=== PATIENT | male | born 1950 | race Caucasian/White ===

== ENCOUNTER 2021-01-07 10:04 | Emergency (ER) | payer MEDICARE, SELFPAY ==
[2021-01-07] VITALS (7 sets, daily range): BP systolic 144–200; BP diastolic 69–101; PULSE 65–74; RESP 16–20; TEMP 36.6–36.9; O2SAT 95–100; BMI 20.9
--- NOTE | ~2021-01-07 | XR_ITS ---
EXAMINATION: XR CHEST CLINICAL INFORMATION: Generalized weakness COMPARISON: None TECHNIQUE: Portable upright AP x2 views of the chest was obtained. FINDINGS: The lungs are clear. There is no airspace consolidation or groundglass opacity. There is no pneumothorax or pneumomediastinum. The heart is normal in size and the vascularity is normal. The costophrenic sulci are clear. There is no effusion. The hilar and mediastinal contours and visualized bony structures are unremarkable. XR/XR chest 1V IMPRESSION: Unremarkable examination.
--- NOTE | ~2021-01-07 | CT_ITS ---
EXAMINATION: CT HEAD WITHOUT CONTRAST CLINICAL INFORMATION: Unsteady gait. COMPARISON: None TECHNIQUE: Contiguous axial imaging was performed from the skull base to vertex without intravenous administration of contrast. This CT examination was performed using dose optimization techniques as appropriate, variously including the following: *Automated exposure control *Adjustment of mA and/or kV according to patient size (this includes techniques or standardized protocols for targeted exams where dose is matched to indication/reason for exam; i.e. extremities or head) *Use of iterative reconstruction technique DLP: 825 mGy-cm FINDINGS: There is no evidence of an extra-axial collection. There is no evidence of intra-axial or extra-axial hemorrhage. Ventricles and extra-axial CSF spaces are prominent suggestive of mild generalized atrophy. There is nonspecific periventricular white matter disease. No mass, mass effect or infarct is seen. Visualized paranasal sinuses, mastoid air cells and middle ears are clear. No skull fracture is seen. CT/CT head/brain wo con IMPRESSION: No acute findings. Mild generalized atrophy and nonspecific periventricular white matter disease.
--- NOTE | 2021-01-07 10:39 | ECG_ITS ---
Test Reason : WEAKNESS Blood Pressure : / mmHG Vent. Rate : 065 BPM Atrial Rate : 065 BPM P-R Int : 146 ms QRS Dur : 132 ms QT Int : 446 ms P-R-T Axes : 077 083 068 degrees QTc Int : 463 ms Normal sinus rhythm Right bundle branch block Abnormal ECG When compared with ECG of 22-MAY-2005 12:13, Right bundle branch block has replaced Incomplete right bundle branch block Referred By: Karir Murry Electronically Signed By:ALLI WILSON MD
--- NOTE | 2021-01-07 10:40 | ED.WEAKNESS ---
HPI - Weakness General Chief complaint: Weakness Stated complaint: GEN WEAKNESS,UNABLE TO WALK FOR AWHILE Time Seen by Provider: 01/07/21 10:38 Source: patient and EMS Mode of arrival: EMS Limitations: no limitations History of Present Illness HPI Narrative: 70 years old male was evicted from his motel with his stone, noticed by the police records clerk that he was not walking unsteady gait in patient was sent to the hospital for further evaluation, patient stated for the past 5 years he has been having unsteady gait, able to ambulate unsteady gait by holding to the wall, patient stated first-time notice was 5 years ago and was gradually getting worse., patient declined any new other symptoms, no chest pain, no abdominal pain, no shortness of breath. No weakness no numbness or difficulty speaking. Related Data Home Medications Medication Instructions Recorded Confirmed albuterol sulfate [Ventolin HFA] 1 puff INHALATION Q4H PRN 01/07/21 01/07/21 Allergies Allergy/AdvReac Type Severity Reaction Status Date / Time No Known Allergies Allergy Unverified 01/07/21 10:39 Review of Systems Review of Systems: All other systems are reviewed and are negative Constitutional: Reports as per HPI and Reports no additional constitutional complaints Eyes: Reports as per HPI and Reports no additional eye complaints Reports system reviewed and no additional complaints, except as documented Cardiovascular: Reports as per HPI and Reports no additional cardiovascular complaints Respiratory: Reports as per HPI and Reports no additional respiratory complaints Gastrointestinal: Reports as per HPI and Reports no additional gastrointestinal complaints Genitourinary: Reports no additional female genitourinary complaints Musculoskeletal: Reports no additional musculoskeletal complaints Skin/Breast: Reports system reviewed and no additional complaints, except as docu Psychiatric: Reports no additional psychiatric complaints Endocrine: Reports no additional endocrine complaints Hematologic/Lymphatic: Reports no additional hematologic/lymphatic complaints Allergic/Immunologic: Reports no additional allergic/immunologic complaints Reports system reviewed and no additional complaints, except as documented and Reports Abnormal speech present [facility] Past Medical History Medical History Asthma Hernia Spinal cord cysts Social History Social History Alcohol intake: former Smoking Status: Current every day smoker Smoked in Last 30 Days: Yes Advance Directives: Yes Advance Directives Information Provided: Yes Advance Directives on File: No Physical Exam Vital Signs: Vital Signs: Last Vital Signs Temp 98.4 F 01/07/21 14:10 Pulse 72 01/07/21 14:10 Resp 16 01/07/21 14:10 BP 159/88 H 01/07/21 14:10 Pulse Ox 100 01/07/21 14:10 Body Mass Index 20.9 Vital signs have been reviewed as appeared to be correct. Blood pressure in the high range. Heart rate normal. Respiration rate normal. Temperature normal. Oxygen saturation normal. Appearance: Alert. Oriented X3. No acute distress. Head: Normal external exam. Normocephalic. Atraumatic. No Hunter signs noted. No raccoon eyes noted Eyes: PERRLA. EOMI. Conjunctiva and sclera normal. Eyelids normal. ENT: TM's Normal. Pharynx normal. Uvula midline. Moist mucous membranes. No trismus noted. No drooling noted. No muffled voice noted. Neck: Normal inspection. Neck supple. FROM. No adenopathy. Thyroid Normal. No meningeal signs. No neck mass noted. CVS: Normal heart rate and rhythm. Heart sound normal. No murmurs noted. Pulses normal throughout. Respiratory: No respiratory distress. Painless inspiration. Breath sounds normal. No wheezes/rales/rhonchi noted. Chest nontender. No accessory muscle usage noted or decreased air movement noted. Abdomen: Soft and nontender. Bowel sounds normal in all 4 quadrants. No distention noted. No organomegaly noted. No visible injury noted. Back: No CVA tenderness. Full range of motion noted. Skin: Skin warm and dry. Normal skin color. Normal skin turgor. No rashes/lesions/lacerations noted. Extremities: No lower extremity edema. Extremities exhibit normal range of motion. Extremities nontender. Neuro: Oriented X 3. No motor deficit. No sensory deficit. Reflexes normal. Course Course Course Narrative: Assessment and plan. 70-year-old male came in for difficult ambulation for the past 5 years, no acute finding on the physical exam, unremarkable labs and chest x-ray also get PT evaluation and social and political studies professor hopefully for placement. Reevaluation(s) Reevaluation #1: Physician observation started at15:00 . Patient placed in physician observation because the patient needed more time for medication to work and to see PT/case management for evaluation and the need for placement patient's vital sign were stable, patient is alert and oriented , neuro exam unchanged, unremarkable rest of physical exam. Time: 15:25 MDM - Weakness Lab Data Attestation: I reviewed the patient's lab results. Result diagrams: 01/07/21 10:52 01/07/21 10:52 Labs: Lab Results 01/07/21 01/07/21 01/07/21 Range/Units 10:52 10:52 10:52 WBC 6.7 (4.8-10.8) X10*3/uL RBC 4.61 (4.60-5.80) X10*6/uL Hgb 13.5 L (14.0-18.0) g/dl Hct 41.8 L (42-52) % MCV 90.7 (80-98) fL MCH 29.3 (27.0-33.0) pg MCHC 32.3 (31.0-36.0) g/dl RDW 12.7 (11.0-16.0) % Plt Count 181 (160-400) X10*3/uL MPV 10.4 (9.4-12.4) fL Immature Gran % (Auto) 0.5 H (0.0-0.4) % Neut % (Auto) 58.8 (45-73) % Lymph % (Auto) 29.3 (20-40) % [place]wood % (Auto) 9.6 (2-11) % Eos % (Auto) 1.5 (0-4) % Baso % (Auto) 0.3 (0-2) % Lymph # (Auto) 2.0 (1.2-4.9) X10*3/uL [place] # (Auto) 0.6 (0.1-1.2) X10*3/uL Eos # (Auto) 0.1 (0.0-0.4) X10*3/uL Baso # (Auto) 0.0 (0.0-0.2) X10*3/uL Abs Immat Gran (auto) 0.03 (0.00-0.03) X10*3/uL Absolute Neuts (auto) 3.9 (2.0-8.3) X10*3/uL Absolute Nucleated RBC 0.000 (0.0-0.012) X10*3/uL Nucleated RBC % (auto) 0.0 (0.0-0.2) /100WBC Sodium 136 (135-145) mmol/L Potassium 4.1 (3.3-5.1) mmol/L Chloride 100 (96-108) mmol/L Carbon Dioxide 25 (22-29) mmol/L Anion Gap 15 (12-20) BUN 21 H (9-16) mg/dL Creatinine 0.81 (0.5-1.4) mg/dL Estim Creat Clear Calc 77.3 Estimated GFR > 60 Random Glucose 76 (60-115) mg/dL Calcium 9.3 (8.4-10.2) mg/dL Total Bilirubin 0.7 (0.0-1.0) mg/dL Direct Bilirubin 0.2 (0.0-0.5) mg/dL AST 14 (5-37) U/L ALT 6 (0-40) U/L Alkaline Phosphatase 61 (39-117) U/L Troponin I High Sens 4.6 (<3.5-35.0) ng/L Total Protein 7.5 (6.5-8.0) g/dL Albumin 4.2 (3.5-5.0) g/dL Lipase 27 (8-78) U/L Urine Color Urine Appearance Urine pH (5.0-8.0) Ur Specific [place] (1.005-1.025) Urine Protein (NEG-TRACE) MG/DL Urine Glucose (UA) (NEG) MG/DL Urine Ketones (NEG) MG/DL Urine Blood (NEG) Urine Nitrite (NEG) Ur Leukocyte Esterase (NEG) COVID-19 (STEPHANIE) (Negative) COVID-19 Clin Com 01/07/21 01/07/21 Range/Units 11:24 13:24 WBC (4.8-10.8) X10*3/uL RBC (4.60-5.80) X10*6/uL Hgb (14.0-18.0) g/dl Hct (42-52) % MCV (80-98) fL MCH (27.0-33.0) pg MCHC (31.0-36.0) g/dl RDW (11.0-16.0) % Plt Count (160-400) X10*3/uL MPV (9.4-12.4) fL Immature Gran % (Auto) (0.0-0.4) % Neut % (Auto) (45-73) % Lymph % (Auto) (20-40) % Haywood % (Auto) (2-11) % Eos % (Auto) (0-4) % Baso % (Auto) (0-2) % Lymph # (Auto) (1.2-4.9) X10*3/uL [place]wood # (Auto) (0.1-1.2) X10*3/uL Eos # (Auto) (0.0-0.4) X10*3/uL Baso # (Auto) (0.0-0.2) X10*3/uL Abs Immat Gran (auto) (0.00-0.03) X10*3/uL Absolute Neuts (auto) (2.0-8.3) X10*3/uL Absolute Nucleated RBC (0.0-0.012) X10*3/uL Nucleated RBC % (auto) (0.0-0.2) /100WBC Sodium (135-145) mmol/L Potassium (3.3-5.1) mmol/L Chloride (96-108) mmol/L Carbon Dioxide (22-29) mmol/L Anion Gap (12-20) BUN (9-16) mg/dL Creatinine (0.5-1.4) mg/dL Estim Creat Clear Calc Estimated GFR Random Glucose (60-115) mg/dL Calcium (8.4-10.2) mg/dL Total Bilirubin (0.0-1.0) mg/dL Direct Bilirubin (0.0-0.5) mg/dL AST (5-37) U/L ALT (0-40) U/L Alkaline Phosphatase (39-117) U/L Troponin I High Sens (<3.5-35.0) ng/L Total Protein (6.5-8.0) g/dL Albumin (3.5-5.0) g/dL Lipase (8-78) U/L Urine Color YELLOW Urine Appearance CLEAR Urine pH 6.0 (5.0-8.0) Ur Specific [place] 1.015 (1.005-1.025) Urine Protein NEG (NEG-TRACE) MG/DL Urine Glucose (UA) NEG (NEG) MG/DL Urine Ketones 5 (NEG) MG/DL Urine Blood NEG (NEG) Urine Nitrite NEG (NEG) Ur Leukocyte Esterase NEG (NEG) COVID-19 (STEPHANIE) Negative (Negative) COVID-19 Clin Com See Note Imaging Data Chest x-ray: Radiologist's impression: The lungs are clear. There is no airspace consolidation or groundglass opacity. There is no pneumothorax or pneumomediastinum. The heart is normal in size and the vascularity is normal. The costophrenic sulci are clear. There is no effusion. The hilar and mediastinal contours and visualized bony structures are unremarkable. Discharge Plan Discharge Clinical Impression: Difficulty in walking Hypertension Qualifiers: Hypertension type: essential hypertension Qualified Code(s): I10 - Essential (primary) hypertension Patient Disposition: Home, Self-Care Instructions: Weakness (ED) Prescriptions: No Action albuterol sulfate [Ventolin HFA] 90 mcg/actuation Hfa Aerosol Inhaler 1 puff INHALATION Q4H PRN (Reason: Wheezing) RF: 0 Referrals: Physician,None [Primary Care Provider] - 2 days
[2021-01-07 10:55] LABS: MANUAL DIFF FLAG NO
[2021-01-07 10:57] LABS: Basophils Percent Auto 0.3 % (0-2); Eosinophils Absolute Auto 0.1 X10*3/uL (0.0-0.4); Eosinophils Percent Auto 1.5 % (0-4); Hematocrit 41.8 % (42-52); Hemoglobin 13.5 g/dl (14.0-18.0); Imm Gran Abs Auto 0.03 X10*3/uL (0.00-0.03); Imm Gran Pct Auto 0.5 % (0.0-0.4); Lymphocytes Percent Auto 29.3 % (20-40); Mean Corpuscular HGB Conc 32.3 g/dl (31.0-36.0); Mean Corpuscular Hemoglobin 29.3 pg (27.0-33.0); Mean Corpuscular Volume 90.7 fL (80-98); Mean Platelet Volume 10.4 fL (9.4-12.4); Monocytes Absolute Auto 0.6 X10*3/uL (0.1-1.2); Monocytes Percent Auto 9.6 % (2-11); Neutrophils Absolute Auto 3.9 X10*3/uL (2.0-8.3); Neutrophils Percent Auto 58.8 % (45-73); Platelet Count 181 X10*3/uL (160-400); Red Blood Count 4.61 X10*6/uL (4.60-5.80); Red Cell Distribution Width 12.7 % (11.0-16.0); White Blood Count 6.7 X10*3/uL (4.8-10.8)
[2021-01-07] MEDS: 0.9 % Sodium Chloride 1,000 ML 999 ML IVCONT (11:16)
[2021-01-07 11:23] LABS: Alanine Aminotransferase 6 U/L (0-40); Albumin Level 4.2 g/dL (3.5-5.0); Alkaline Phosphatase 61 U/L (39-117); Anion Gap 15 (12-20); Aspartate Amino Transferase 14 U/L (5-37); Bilirubin Direct 0.2 mg/dL (0.0-0.5); Bilirubin Total 0.7 mg/dL (0.0-1.0); Blood Urea Nitrogen 21 mg/dL (9-16); Calcium 9.3 mg/dL (8.4-10.2); Carbon Dioxide 25 mmol/L (22-29); Chloride 100 mmol/L (96-108); Creatinine Clr Calc Pharmacy 77.3; Estimated Glomerular Filt Rate > 60; Glucose Random 76 mg/dL (60-115); Lipase 27 U/L (8-78); Potassium 4.1 mmol/L (3.3-5.1); Sodium 136 mmol/L (135-145); Total Protein 7.5 g/dL (6.5-8.0)
[2021-01-07 11:30] LABS: Troponin-I High Sensitivity 4.6 ng/L (<3.5-35.0)
[2021-01-07 11:44] LABS: Glucose Urine UA NEG (NEG); Leukocyte Esterase Urine NEG (NEG); Nitrite Urine NEG (NEG); Specific Gravity - Urine 1.015 (1.005-1.025); Urine Blood NEG (NEG); Urine Ketones 5 MG/DL (NEG); Urine Protein NEG (NEG-TRACE)
[2021-01-07 11:48] LABS: Appearance Urine CLEAR; Color Urine YELLOW
--- NOTE | 2021-01-07 12:11 | PC.NURSE ---
Addendum entered by Rylie Claros 01/07/21 12:18: Pt also reports being evicted from motel this am, where he was living w/ his son for >7 months due to eviction from apartment. Pt denies domestic violence. Original Note: Pt reports difficulty ambulating, has not left apartment in months r/t ambulation issues, unable to complete ADLS. Pt and case management consulted.
[2021-01-07 13:59] LABS: COVID-19 Test Negative (Negative)
--- NOTE | 2021-01-07 14:51 | PC.NURSE ---
Hung Santiago, asking for update. Please contact at
--- NOTE | 2021-01-07 15:55 | PC.NURSE ---
Pt moved to room 9- report given to Aman kam
--- NOTE | 2021-01-07 15:58 | MHC.CM.ED ---
Received case management consult from Dr Murry. Patient came to ER due to generalized weakness. Work up essentially negative. Physical therapy eval completed. Short term rehab is recommended. Attempted to meet with patient in regards to dischage planning. Nursing care currently being provided. Spoke with patient's son, Hung [phone]. Patient lost his home about 5 years ago due to ETOH abuse. Since then, patient and Hung have lived together, basically motel jumping. Patient hasn't seen a PCP since that time. Patient hasn't had any alcohol in about 1 year. Police were escorting patient and Hung out of a motel and police notified patient was having difficulty ambulating, which is why he was transferred to the ER. Hung is agreeable to short term rehab and is hoping patient will get stronger so he can continue to provide care for his dad. Referral broadcasted in [employer]. Continue to monitor for d/c needs.
--- NOTE | 2021-01-07 18:30 | MHC.CM.ED ---
Met with pt. A&O x3. Slightly unkept. Pt is homeless and has been living in hotel rooms for about 2 1/2 years since he lost his home. States his son lives with him and cares for him. States he has been having difficulty ambulating and navigating stairs, so he has essentially been homebound. He has no services, uses no medical equipment, has no medications and has not seen a doctor in years. Pt states he ambulates around is hotel room holding on to furniture. Pt tells CM he was in [employer] in [place] from [id number]. States he is not vet connected and has no services from the [facility]. Pt states his insurance is Medicare only. Pt understands that PT is recommending [facility]. Is aware the [facility] is interested pending insurance and a HCP. Pt willing to complete a HCP, Naming son, Hung Barreto as HCP ([phone]). Will continue to follow for d/c needs.
--- NOTE | 2021-01-07 19:12 | MHC.CM.ED ---
HCP reviewed, completed ans signed. HCP/son Hung Barreto ([phone]). Copies given to pt. Uploaded into [facility] and [facility]. CM to follow for d/c needs.
[2021-01-08] VITALS: RESP 16
--- NOTE | 2021-01-08 00:10 | PC.NURSE ---
pt urinated on the floor, pt shown the call [place], it was under his covers.
[2021-01-08 01:52] VITALS: BP 146/74; PULSE 63; RESP 16; O2SAT 100
[2021-01-08 02:00] VITALS: RESP 16
[2021-01-08 04:00] VITALS: RESP 16
[2021-01-08 05:55] VITALS: BP 154/81; PULSE 60; RESP 16; TEMP 36.6; O2SAT 99
[2021-01-08 09:08] VITALS: BP 141/75; PULSE 65; RESP 16; O2SAT 99
--- NOTE | 2021-01-08 11:10 | MHC.CM.ED ---
Addendum entered by Vashti Cope 01/08/21 11:12: Vinnie GAITAN also aware. Original Note: Patient remains in ER. [facility] [address] [facility] able to offer a bed. Patient can leave at 11am. [facility] booked. [facility] with chart. Patient and Mitra MARTINS aware. Left voicemail for son Hung via telephone at [phone]. Provided discharge time and contact info for [facility] [address]. Continue to monitor for d/c needs.
--- NOTE | 2021-01-08 11:25 | PC.NURSE ---
Report given to negin Beauchamp at [facility].
== END 2021-01-08 11:35 | disposition home or self-care (01) ==
PROVIDERS: Emergency Provider Emergency Medicine
DX: R26.81 Unsteadiness on feet (principal); I10 Essential (primary) hypertension; R53.1 Weakness; Z79.899 Other long term (current) drug therapy; Z20.822 Contact with and (suspected) exposure to COVID-19; F17.200 Nicotine dependence, unspecified, uncomplicated; Z71.6 Tobacco abuse counseling
CPT/HCPCS: 36415; 70450; 71045; 80048; 80076; 81003; 83690; 84484; 85025; 87635; 93005; 96360; 97162; 99284